=== PATIENT | male | born 1935 | race Caucasian/White ===

== ENCOUNTER 2017-04-12 07:42 | Emergency (ER) | payer OTHER, MEDICARE ==
[~2017-04-12] VITALS: Ht 180.3 cm; Wt 66.0 kg
[~2017-04-12 07:42] MED LIST: ASPIRIN LOW DOS81 M1 PO; ASPIRIN81 MG OR; CARDURA4 MG OR; COUMADIN7.5 MG PO; FLEXERIL PO; FLOMAX0.4 M1 PO; FOLIC ACID1 MG PO; GABAPENTIN300 MG PO; LOSARTAN POT50 MG PO; METFORMIN500 MG PO; METO50TA52 PO; NAPROSYN500 MG PO; PLAVIX75 MG PO; PRAVACHOL20 MG PO; PRILOSEC20 MG OR; PRILOSEC40 MG PO; TRAMADOL HCL50 MG PO; ZOCOR20 MG OR
[2017-04-12 08:52] LABS: HEMATOCRIT 41.2 % (39.0-50.0); HEMOGLOBIN 14.2 g/dl (14.0-18.0); IMMATURE GRANULOCYTES 0.6 % (0.0-1.0); MEAN CELL VOLUME 91.4 fL CALC (80.0-100.0); MEAN CORPUSCULAR HGB 31.5 pG CALC (26.0-32.0); MEAN CORPUSCULAR HGB CONC 34.5 g/L CALC (32.0-36.0); NEUT# 3.54 thou/uL (1.82-7.42); RED BLOOD COUNT 4.51 mill/uL (4.70-6.10); RED CELL DISTRI WIDTH 11.9 % (11.5-15.5)
[2017-04-12 09:07] LABS: URINE BILIRUBIN - DIPSTICK NEGATIVE (NEGATIVE); URINE BLOOD DIPSTICK TRACE-LYSED (NEGATIVE); URINE COLOR YELLOW; URINE GLUCOSE - DIPSTICK NEGATIVE (NEGATIVE); URINE KETONE NEGATIVE (NEGATIVE); URINE LEUK ESTERASE NEGATIVE (NEGATIVE); URINE NITRITE - DIPSTICK NEGATIVE (Negative); URINE PROTEIN - DIPSTICK NEGATIVE (NEG-TRACE); URINE UROBILINOGEN - DIPSTICK 0.2 E.U./dL (0.2)
[2017-04-12 09:08] LABS: URINE CLARITY CLEAR
[2017-04-12 09:59] LABS: ALBUMIN 4.4 g/dL (3.2-5.0); ALKALINE PHOSPHATASE 49 u/l (38-126); ANION GAP 17 (6-22 (CALC)); BILIRUBIN, TOTAL 0.7 mg/dL (0.0-1.4); BUN 12 mg/dL (8-23); BUN/CREATININE RATIO 19 (12-20 (CALC)); CARBON DIOXIDE 25 mmol/l (22-30); CHLORIDE 93 mmol/l (95-108); CREATININE 0.6 mg/dL (0.7-1.3); GFR > 60 ML/MIN (>=60 (CALC)); GFR FOR AFR.AMER. > 60 ML/MIN (>=60 (CALC)); LIPASE 79 u/l (23-300); POTASSIUM 4.8 mmol/l (3.5-5.1); SGOT/AST 19 u/l (19-48); SGPT/ALT 25 u/l (11-66); SODIUM 130 mmol/l (137-146); TOTAL PROTEIN 6.8 g/dL (6.3-8.2)
[2017-04-12] MEDS ORDERED: MOTRIN400 MG PO (10:02)
[2017-04-12] MEDS ORDERED: CEPHALEXIN500 MG PO (10:02)
[2017-04-12 10:15] VITALS: BP 139/70
== END 2017-04-12 10:16 | disposition home or self-care (01) | DRG 552 ==
LOC: ED 07:42
PROVIDERS: Family Medicine
DX: M54.9 Dorsalgia, unspecified (principal); R31.9 Hematuria, unspecified; E11.9 Type 2 diabetes mellitus without complications; X50.0XXA Overexertion from strenuous movement or load, initial encounter; Y93.89 Activity, other specified; Y92.009 Unspecified place in unspecified non-institutional (private) residence as the place of occurrence of the external cause; R07.81 Pleurodynia

== ENCOUNTER 2019-02-22 02:36 | Emergency (ER) | payer MEDICARE, OTHER ==
[~2019-02-22] VITALS: Ht 180.3 cm; Wt 80.0 kg
[~2019-02-22 02:36] MED LIST changes: +CEPHALEXIN500 MG PO; +MOTRIN400 MG PO
[2019-02-22 04:05] VITALS: BP 111/58
== END 2019-02-22 04:25 | disposition home or self-care (01) ==
LOC: ED 02:36
DX: L76.21 Postprocedural hemorrhage of skin and subcutaneous tissue following a dermatologic procedure (principal); I10 Essential (primary) hypertension; E11.9 Type 2 diabetes mellitus without complications; Y83.8 Other surgical procedures as the cause of abnormal reaction of the patient, or of later complication, without mention of misadventure at the time of the procedure

== ENCOUNTER 2019-12-09 09:33 | Observation (INO) | payer MEDICARE, OTHER ==
[~2019-12-09] VITALS: Ht 177.8 cm; Wt 69.7 kg
[2019-12-09] VITALS (12 sets, daily range): BP systolic 107–185; BP diastolic 49–94
--- NOTE | 2019-12-09 09:35 | NUR ---
PATIENT TO ROOM VIA WHEELCHAIR.
[2019-12-09 10:28] LABS: HEMATOCRIT 40.6 % (39.0-50.0); HEMOGLOBIN 13.6 g/dl (14.0-18.0); IMMATURE GRANULOCYTES 0.4 % (0.0-5.0); MEAN CELL VOLUME 93.3 fL CALC (80.0-100.0); MEAN CORPUSCULAR HGB 31.3 pG CALC (26.0-32.0); MEAN CORPUSCULAR HGB CONC 33.5 g/dL CAL (32.0-36.0); NEUT# 5.6 thou/uL (1.82-7.42); RED BLOOD COUNT 4.35 mill/uL (4.70-6.10); RED CELL DISTRI WIDTH 12.1 % (11.5-15.5)
--- NOTE | 2019-12-09 10:28 | NUR ---
TO RADIOLOGY IN STABLE CONDITION VIA STRETCHER.
[2019-12-09 10:44] LABS: ALBUMIN 4.4 g/dL (3.2-5.0); ALKALINE PHOSPHATASE 54 u/l (38-126); ANION GAP 13 (6-22 (CALC)); BILIRUBIN, TOTAL 0.6 mg/dL (0.0-1.4); BUN 18 mg/dL (8-23); BUN/CREATININE RATIO 19 (12-20 (CALC)); CARBON DIOXIDE 25 mmol/l (22-30); CHLORIDE 94 mmol/l (95-108); CREATININE 0.9 mg/dL (0.7-1.3); GFR > 60 ML/MIN (>=60 (CALC)); GFR FOR AFR.AMER. > 60 ML/MIN (>=60 (CALC)); POTASSIUM 4.5 mmol/l (3.5-5.1); SGOT/AST 24 u/l (19-48); SODIUM 128 mmol/l (137-146); TOTAL PROTEIN 7.4 g/dL (6.3-8.2)
[2019-12-09 10:45] LABS: INTERNATIONAL NORMALIZED RATIO 1.1 RATIO (0.7-1.3); PROTHROMBIN TIME 10.5 SECONDS (9.0-12.5)
--- NOTE | 2019-12-09 11:00 | NUR ---
AT BEDSIDE. REPORTS NO NEEDS AT THIS TIME.
[2019-12-09] MEDS ORDERED: PROTONIX40 M2 PO (11:01)
[2019-12-09 11:50] LABS: URINE BILIRUBIN - DIPSTICK NEGATIVE (NEGATIVE); URINE BLOOD DIPSTICK NEGATIVE (NEGATIVE); URINE COLOR YELLOW; URINE GLUCOSE - DIPSTICK NEGATIVE (NEGATIVE); URINE KETONE NEGATIVE (NEGATIVE); URINE LEUK ESTERASE NEGATIVE (NEGATIVE); URINE NITRITE - DIPSTICK NEGATIVE (Negative); URINE PROTEIN - DIPSTICK NEGATIVE (NEG-TRACE); URINE UROBILINOGEN - DIPSTICK 0.2 E.U./dL (0.2)
--- NOTE | 2019-12-09 12:32 | NUR ---
MD AT BEDSIDE TO DISCUSS RESULTS AND POC.
--- NOTE | 2019-12-09 13:15 | NUR ---
REPORT CALLED TO CHUCK CHRISTIE.
--- NOTE | 2019-12-09 14:05 | NUR ---
TO ROOM 280 VIA STRETCHER.
--- NOTE | 2019-12-09 14:30 | NUR ---
PT ARRIVES TO ROOM 280 ON MED/SURG VIA STRETCHER FROM ER, ACCOMPANIED BY ANDRESSA CHRISTIE. PT IS SEEN ALERT, ORIENTED, AMBULATORY WITH CANE. THERE ARE NO NEUROLOGICAL DEFICITS APPRECIATED. PT STATES THAT THE NAUSEA FROM EARLY THIS MORNING HAS PASSED, ALSO. PT IS SCHEDULED FOR MRI, PLAN IS TO TAKE TO MRI AND RETURN HIM TO ICU 5 PER CHANGE OF PLACEMENT PLAN.
--- NOTE | 2019-12-09 15:30 | NUR ---
REPORT RECEIVED FROM CHUCK ON MED SURG.
--- NOTE | 2019-12-09 16:10 | NUR ---
PT ARRIVES TO ICU BED 5 VIA WC ACCOMPANIED BY MS HARRIS. PT ABLE TO TRANSFER SELF TO BED. PT IS ALERT AND ORIENTED X3. ADMISSION ASSESSMENT COMPLETED AT THIS TIME. IV PATENT X1. CALL LIGHT IN REACH. WILL CONTINUE TO MONITOR
--- NOTE | 2019-12-09 16:19 | NUR ---
Dacia RAMOS AT BEDSIDE AT THIS TIME.
--- NOTE | 2019-12-09 17:30 | NUR ---
PT SET UP FOR PM MEAL.
--- NOTE | 2019-12-09 18:01 | NUR ---
LAB AT BEDSIDE AT THIS TIME.
--- NOTE | 2019-12-09 19:15 | NUR ---
PATIENT SITS UP AND IS ASSISTED STANDBY TO THE BATHROOM. PT DENIES DIZINESS, HAS A STAEDY GAIT, EXPRESSES HOW APPRECIATIVE HE IS OF NURSES. CONVERSATES CLEARLY AND APPROPRIATELY. IS INSTRUCTED TO PULL ON RED CORDVIN THE RESTROOM WHEN HE IS READY TO GET UP, PATIENT AGREES.
--- NOTE | 2019-12-09 19:20 | NUR ---
PATIENT IS ABLE TO WALK BACK TO HIS BED WITHOUT ANY DIFFICULTY, HE WAS ABLE TO WASH HIS HANDS. PATIET IS ORIENTED X4. POC DISCUSSED, NIH PERFORMED AND SCORE IS O. DENIES DIZINESS. NURSING ASSESSMENT PERFORMED. IV X1 INTACT, NO REDNESS OR TENDERNESS, FLUSHES PROPERLY. BP WAS 180'S WHEN HE SAT DOWN FROM ACTIVITY, WILL RECHECK. SR ON TELEMETRY. NO SOB NOTED. PT IS HARD OF HEARING. NO COMPLAINTS OR OTHER NEEDS AT THIS TIME. CALL LIGHT WITHIN REACH.
--- NOTE | 2019-12-09 21:40 | NUR ---
PATIENT ABLE TO SWALLOW HIS BEDTIME MEDS WITHOUT DIFFICULTY. LOVENOX INJECTION GIVEN ON LEFT ABDOMINAL AREA, PT ABLE TO TOLERATE. PT ALSO REPORTS HE DOES COUGH UP PHLEGM AT TIMES THROUGH THE NIGHT BUT THAT IT IS NORMAL FOR HIM. CALL LIGHT WITHIN REACH.
[2019-12-10] VITALS (9 sets, daily range): BP systolic 135–178; BP diastolic 64–93
--- NOTE | 2019-12-10 00:05 | NUR ---
NIH TEST PERFORMED, PATIENT SCORES 0. NO CHANGES. NO COMPLAINTS OF DIZZINESS. URINAL EMPTIED, URINE CLEAR/YELLOW. BP 150'S-160'S. SPO2 GREATER THAN 95%, NO SOB NOTED. SR ON TELEMETRY. CALL LIGHT WITHIN REACH.
--- NOTE | 2019-12-10 00:34 | NUR ---
P[employer] WORKER IN ROOM TO DRAW BLOOD.
--- NOTE | 2019-12-10 01:27 | NUR ---
PATIENT'S BP RECHECKED FROM LAST READING 170'S SYSTOLIC, CURRENT BP 166/81 MMHG. PATIENT HAS NO COMPLAINTS OR NEEDS AT THIS TIME. URINAL EMPTIED. CALL LIGHT WITHIN REACH.
--- NOTE | 2019-12-10 04:10 | NUR ---
patioent awakens easily, nih score 0. no complaints. urinal emtpied, urine is clear/yellow. call light within reach.
--- NOTE | 2019-12-10 04:28 | NUR ---
prn hydralazine iv given for bp 178 systolic.
[2019-12-10 05:25] LABS: HEMATOCRIT 44.3 % (39.0-50.0); HEMOGLOBIN 14.6 g/dl (14.0-18.0); IMMATURE GRANULOCYTES 0.3 % (0.0-5.0); MEAN CELL VOLUME 93.9 fL CALC (80.0-100.0); MEAN CORPUSCULAR HGB 30.9 pG CALC (26.0-32.0); NEUT# 4.33 thou/uL (1.82-7.42); RED BLOOD COUNT 4.72 mill/uL (4.70-6.10); RED CELL DISTRI WIDTH 12.3 % (11.5-15.5)
--- NOTE | 2019-12-10 05:30 | NUR ---
PATIENT'S BP 179/77, WILL CONTINUE TO MONITOR. PT CONTINUES TO USE URINAL, REQUESTS ANOTHER BOTTLE OF WATER, PROVIDED. CALL LIGHT WITHIN REACH.
[2019-12-10 05:45] LABS: ALBUMIN 4.3 g/dL (3.2-5.0); ALKALINE PHOSPHATASE 57 u/l (38-126); ANION GAP 12 (6-22 (CALC)); BILIRUBIN, TOTAL 0.5 mg/dL (0.0-1.4); BUN 15 mg/dL (8-23); BUN/CREATININE RATIO 17 (12-20 (CALC)); CARBON DIOXIDE 25 mmol/l (22-30); CHLORIDE 98 mmol/l (95-108); CHOLESTEROL HDL RATIO 7.6 (<4.4 (CALC)); CREATININE 0.8 mg/dL (0.7-1.3); GFR > 60 ML/MIN (>=60 (CALC)); GFR FOR AFR.AMER. > 60 ML/MIN (>=60 (CALC)); HDL CHOLESTEROL 28 mg/dL (>=40); POTASSIUM 4.6 mmol/l (3.5-5.1); SGOT/AST 25 u/l (19-48); SODIUM 131 mmol/l (137-146); TOTAL CHOLESTEROL 214 mg/dl (0-199)
[2019-12-10 05:53] LABS: VLDL CHOLESTROL 170 mg/dl (0-38 (CALC))
[2019-12-10 05:57] LABS: CALCULATED LDLCHOLESTEROL 16 mg/dL (62-129 (CALC)); TOTAL TRIGLYCERIDES 849 mg/dl (30-149)
--- NOTE | 2019-12-10 06:15 | NUR ---
PT PAVING MACHINE OPERATOR LIGHT, COMPLAINS OF NAUSEA, TRAY GIVEN, ALSO REQUESTS TO GET UP TO USE THE RESTROOM, HE WAS STANDING UP HE BURPED LOUDLY, STATES, "MAYBE THAT WLL MAKE ME FEEL BETTER." NOW SITS IN THE BATHROOM.
--- NOTE | 2019-12-10 06:23 | NUR ---
PATIENT SAFELY WALKS BACK TO HIS BED, PLACED BACK ON THE MONITOR. REPRTS HE DID NOT HAVE A BOWEL MOVEMENT BUT HAS BEEN BURPING A FEW TIMES.DENIES NAUSEA AT THIS TIME. CALL LIGHT WITHIN REACH.
--- NOTE | 2019-12-10 06:45 | NUR ---
RECIEVED REPORT FROM PRATIK AVILES. ASSUMED PT CARE.
--- NOTE | 2019-12-10 07:45 | NUR ---
PT A&OX4, ABLE TO MAKE NEEDS KNOWN, SR ON TELEMETRY, HR 64. PT DENIES CP, SOB OR DISTRESS, DENIES DIZZINESS, N/V. RESPIRATIONS EVEN/UNLABORED, SA02@97% RA. LS CLEAR THROUGHOUT. ABDOMEN SOFT, NON-TENDER, LBM 12-08-19. RW22G/SL FLUSHED WITHOUT DIFFICULTY. METFORMIN ON HOLD DUE TO CONTRAST 12-09-19. CALL LIGHT IN REACH. WILL MONITOR.
--- NOTE | 2019-12-10 08:45 | NUR ---
DR. UNDERWOOD AT BEDSIDE FOR ASSESSMENT AND TO DISCUSS PLAN OF CARE, NEW ORDERS RECIEVED.
[2019-12-10] MEDS ORDERED: LOSARTAN POTASS25 MG PO (08:57)
--- NOTE | 2019-12-10 10:08 | NUR ---
IV site discontinued, cath intact. No edema , no redness, voices no discomfort.
--- NOTE | 2019-12-10 10:48 | NUR ---
Discharge instructions given. Patient verbalizes understanding of same. Discharged in stable condition via Wheelchair to Home with family. All belongings sent with pt.
== END 2019-12-10 10:48 | disposition home or self-care (01) ==
LOC: ED 09:33 → ED-I 10:01 → ED 10:01 → ED-I 12:25 → ED 12:36 → ICU 12:37 → MS2 12:37 → ICU 16:00
PROVIDERS: Nurse Practitioner; Student in an Organized Health Care Education/Training Program; ADMIT Internal Medicine; ATTEND Internal Medicine
DX: R42 Dizziness and giddiness (principal); I10 Essential (primary) hypertension; E11.40 Type 2 diabetes mellitus with diabetic neuropathy, unspecified; E87.1 Hypo-osmolality and hyponatremia; I25.10 Atherosclerotic heart disease of native coronary artery without angina pectoris; E78.5 Hyperlipidemia, unspecified; K21.9 Gastro-esophageal reflux disease without esophagitis; Z95.5 Presence of coronary angioplasty implant and graft; Z95.2 Presence of prosthetic heart valve; Z85.46 Personal history of malignant neoplasm of prostate; Z86.711 Personal history of pulmonary embolism; Z79.84 Long term (current) use of oral hypoglycemic drugs; Z85.528 Personal history of other malignant neoplasm of kidney; Z90.5 Acquired absence of kidney; Z20.828 Contact with and (suspected) exposure to other viral communicable diseases
CPT/HCPCS: A9579; G0378; J1650

== ENCOUNTER 2021-11-16 17:16 | Emergency (ER) | payer MEDICARE, OTHER ==
[~2021-11-16] VITALS: Ht 177.8 cm; Wt 81.8 kg
[2021-11-16] VITALS (8 sets, daily range): BP systolic 167–198; BP diastolic 89–109
[~2021-11-16 17:16] MED LIST changes: +LOSARTAN POTASS25 MG PO; +PROTONIX40 M2 PO
[2021-11-16 21:04] LABS: HEMATOCRIT 44.4 % (39.0-50.0); HEMOGLOBIN 14.9 g/dl (14.0-18.0); IMMATURE GRANULOCYTES 0.2 % (0.0-5.0); MEAN CELL VOLUME 93.7 fL CALC (80.0-100.0); MEAN CORPUSCULAR HGB 31.4 pG CALC (26.0-32.0); MEAN CORPUSCULAR HGB CONC 33.6 g/dL CAL (32.0-36.0); NEUT# 5.85 thou/uL (1.82-7.42); RED BLOOD COUNT 4.74 mill/uL (4.70-6.10); RED CELL DISTRI WIDTH 12.4 % (11.5-15.5)
[2021-11-16 21:19] LABS: ALKALINE PHOSPHATASE 74 u/l (38-126); ANION GAP 17 (6-22 (CALC)); BILIRUBIN, TOTAL 0.6 mg/dL (0.0-1.4); BUN 19 mg/dL (8-23); BUN/CREATININE RATIO 20 (12-20 (CALC)); CARBON DIOXIDE 27 mmol/l (22-30); CHLORIDE 95 mmol/l (95-108); CREATININE 0.9 mg/dL (0.7-1.3); GFR FOR AFR.AMER. > 60 ML/MIN (>=60 (CALC)); GFR OTHER RACES > 60 ML/MIN (>=60 (CALC)); POTASSIUM 4.3 mmol/l (3.5-5.1); SGOT/AST 33 u/l (19-48); SODIUM 134 mmol/l (137-146)
[2021-11-16 21:20] LABS: TOTAL PROTEIN 8.8 g/dL (6.3-8.2)
== END 2021-11-16 21:57 | disposition home or self-care (01) ==
LOC: ED 17:16
PROVIDERS: Family Medicine
DX: J06.9 Acute upper respiratory infection, unspecified (principal); J44.9 Chronic obstructive pulmonary disease, unspecified; R05.9 Cough, unspecified; I10 Essential (primary) hypertension; E11.9 Type 2 diabetes mellitus without complications

== ENCOUNTER 2023-12-22 12:02 | Emergency (ER) | payer MEDICARE, OTHER ==
[~2023-12-22] VITALS: Ht 177.8 cm; Wt 79.3 kg
[2023-12-22] VITALS (35 sets, daily range): BP systolic 125–148; BP diastolic 64–78
[2023-12-22 12:58] LABS: URINE BILIRUBIN - DIPSTICK Negative (NEGATIVE); URINE BLOOD DIPSTICK Large (NEGATIVE); URINE GLUCOSE - DIPSTICK 100 mg/dL (NEGATIVE); URINE KETONE Negative (NEGATIVE); URINE LEUK ESTERASE Trace (NEGATIVE); URINE NITRITE - DIPSTICK Negative (Negative); URINE PROTEIN - DIPSTICK >=300 mg/dL (NEG-TRACE); URINE UROBILINOGEN - DIPSTICK 0.2 E.U./dL (0.2)
[2023-12-22 13:01] LABS: URINE COLOR Bloody; URINE RBC >100 RBC/hpf (0-5)
[2023-12-22] MEDS ORDERED: SODIUM CHLORIDE 0.9% 1,000 ML IV ONE (13:15)
[2023-12-22 13:21] LABS: BASO% 0.3 % (0-3); EOS% 0.9 % (0-8); HEMATOCRIT 39.5 % (39.0-50.0); HEMOGLOBIN 13.1 g/dl (14.0-18.0); IMMATURE GRANULOCYTES 0.2 % (0.0-5.0); LYMPH% 22.3 % (15-41); MEAN CELL VOLUME 96.1 fL CALC (80.0-100.0); MEAN CORPUSCULAR HGB 31.9 pG CALC (26.0-32.0); MEAN CORPUSCULAR HGB CONC 33.2 g/dL CAL (32.0-36.0); MONO% 12.5 % (2-13); NEUT# 4.19 thou/uL (1.82-7.42); NEUT% 63.8 % (42-76); RED BLOOD COUNT 4.11 mill/uL (4.70-6.10); RED CELL DISTRI WIDTH 12.8 % (11.5-15.5)
[2023-12-22 13:47] LABS: BILIRUBIN, TOTAL 0.6 mg/dL (0.2-1.3)
[2023-12-22 13:50] LABS: CREATININE 10.8 mg/dL (0.7-1.3)
[2023-12-22 13:51] LABS: ALBUMIN 3.5 g/dL (3.2-5.0); POTASSIUM 7.1 mmol/l (3.5-5.1); TOTAL PROTEIN 6.2 g/dL (6.3-8.2)
[2023-12-22 13:53] LABS: INTERNATIONAL NORMALIZED RATIO 1.2 RATIO (0.7-1.3)
[2023-12-22 13:55] LABS: PROTHROMBIN TIME 10.9 SECONDS (9.0-12.5)
[2023-12-22] MEDS ORDERED: INSULIN REGULAR (HUMAN) 100 UNIT/ML INJ IV ONE (13:55)
[2023-12-22] MEDS ORDERED: SODIUM POLYSTYRENE SULFONATE 15 G/BTL POWDER PO ONE (13:55)
[2023-12-22] MEDS ORDERED: DEXTROSE 50% 50 ML/SYR IV ONE (13:55)
[2023-12-22] MEDS ORDERED: DEXTROSE 250 ML IV ONE (14:05)
[2023-12-22] MEDS ORDERED: CALCIUM CHLORIDE 10% 100 MG/ML 10ML SYR IV ONE (14:35)
[2023-12-22] MEDS ORDERED: NEURONTIN400 MG PO (17:06)
[2023-12-22] MEDS ORDERED: MULTI VIT PO (17:07)
[2023-12-22] MEDS ORDERED: METFORMIN500 M2 PO (17:07)
[2023-12-22] MEDS ORDERED: CRESTOR40 MG PO (17:08)
[2023-12-22 17:10] LABS: CREATININE 10.5 mg/dL (0.7-1.3); POTASSIUM 5.7 mmol/l (3.5-5.1)
== END 2023-12-22 22:00 | disposition short-term general hospital (02) ==
LOC: ED 12:02
PROVIDERS: Family Medicine; Nurse Practitioner
DX: N17.9 Acute kidney failure, unspecified (principal); E87.5 Hyperkalemia; R31.9 Hematuria, unspecified; I10 Essential (primary) hypertension; E11.9 Type 2 diabetes mellitus without complications; Z95.5 Presence of coronary angioplasty implant and graft; Z85.46 Personal history of malignant neoplasm of prostate; Z86.711 Personal history of pulmonary embolism; Z85.528 Personal history of other malignant neoplasm of kidney; Z90.5 Acquired absence of kidney; Z95.828 Presence of other vascular implants and grafts